=== PATIENT | male | born 1995 | race Caucasian/White ===

== ENCOUNTER 2019-06-13 21:02 | Emergency (ER) | payer OTHER ==
[2019-06-13 21:11] VITALS: BP 148/86
[2019-06-13] MEDS ORDERED: BUFFERED LIDOCAINE 10 ML SYRINGE SUBQ STA (21:20)
[2019-06-13] MEDS ORDERED: TETANUS/DIPHTHERIA/PERTUSSIS 0.5 ML SYRINGE IM ONE (21:21)
--- NOTE | 2019-06-13 21:21 | ED Physician Documentation ---
PD HPI HEAD INJURY - Stated complaint Stated Complaint: HEAD INJ/BLEEDING - Chief complaint Chief Complaint: Laceration - History obtained from History obtained from: Patient - History of Present Illness Mechanism of head injury: Blow (He jumped over a baby gate at 8:15 PM and hit his head on the ceiling. He sustained a laceration on the top of the head. There is no loss of consciousness, headache. Tetanus is unknown. No nausea.) Review of Systems Constitutional: denies: Fever, Chills Cardiac: reports: Reviewed and negative Respiratory: reports: Reviewed and negative PD PAST MEDICAL HISTORY - Past Medical History Past Medical History: No - Past Surgical History Past Surgical History: No - Present Medications Home Medications: Ambulatory Orders Medication Instructions Recorded Confirmed No Known Home Medications 06/13/19 06/13/19 - Allergies Allergies/Adverse Reactions: Allergies Allergy/AdvReac Type Severity Reaction Status Date / Time No Known Drug Allergies Allergy Verified 06/13/19 21:11 - Social History Does the pt smoke?: Yes Smoking Status: Current every day smoker Does the pt drink ETOH?: Yes - Immunizations Immunizations are current?: No Immunizations: TDAP >10years/unknown PD ED PE NORMAL - Vitals Vital signs reviewed: Yes - General General: Alert and oriented X 3, No acute distress - HEENT HEENT: PERRL, EOMI, Other (There is a 3 cm horizontal laceration on the top of the head ) - Neck Neck: Supple, no meningeal sign, No bony TTP - Neuro Neuro: Alert and oriented X 3, 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, No motor deficit, No sensory deficit, Normal speech Eye Opening: Spontaneous Motor: Obeys Commands Verbal: Oriented GCS Score: 15 - Psych Psych: Normal mood Results - Vitals Vitals: Vital Signs - 24 hr 06/13/19 21:09 Temperature 37.8 C H Heart Rate 109 H Respiratory 16 Rate Blood Pressure 148/86 H O2 Saturation 98 Oxygen O2 Source Room air Procedures - Laceration (location) scalp Length in cm: 3 Wound type: Linear Anesthesia: Lidocaine 1%, With bicarb Wound Preparation: Irrigated copiously NS Skin layer closure: Marcy (8) Other: Tetanus booster given Complexity: Simple Departure - Departure Disposition: 01 Home, Self Care Clinical Impression: Scalp laceration Condition: Good Record reviewed to determine appropriate education?: Yes Instructions: ED Laceration Scalp Stitch Or Stap Comments: Come back for any signs of infection which would include: Redness, swelling, drainage, increased pain, or fevers. Follow-up with your physician in 7-8 days for suture removal. Discharge Date/Time: 06/13/19 21:42
== END 2019-06-13 21:42 | disposition home or self-care (01) ==
LOC: ED 21:02
DX: S01.01XA Laceration without foreign body of scalp, initial encounter (principal); W22.8XXA Striking against or struck by other objects, initial encounter; Y93.39 Activity, other involving climbing, rappelling and jumping off; F17.200 Nicotine dependence, unspecified, uncomplicated
CPT/HCPCS: 12002; 90471